=== PATIENT | female | born 1995 ===

== ENCOUNTER 2018-09-23 12:04 | Emergency (ER) | payer OTHER ==
[2018-09-23 12:28] VITALS: BP 98/67
--- NOTE | 2018-09-23 12:43 | UC ---
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 felt immediate pain and has pain w/ movement. of note she reports having chronic back pain and she sees her pcp for this. PT appts are pending. - History of Current Complaint Chief Complaint: UCBackPain Stated Complaint: BACK INJURY Time Seen by Provider: 09/23/18 12:11 Hx Obtained From: Patient Hx Last Menstrual Period: depo Onset/Duration: Sudden Onset Pain Intensity: 10 Pain Scale Used: 0-10 Numeric Character: Spasmodic Aggravating Factor(s): Movement, Lifting, Bending, Walking Alleviating Factor(s): Nothing - Allergies/Home Medications Allergies/Adverse Reactions: Allergies Allergy/AdvReac Type Severity Reaction Status Date / Time No Known Allergies Allergy Verified 09/23/18 12:28 PMH/Surg Hx/FS Hx/Imm Hx - Additional Past Medical History Additional PMH: chronic back pain Previously Healthy: Yes - Surgical History Surgical History: None Surgery Procedure, Year, and Place: denies - Family History Known Family History: Positive: Non-Contributory - Social History Alcohol Use: None Substance Use Type: None Smoking Status (MU): Never Smoked Tobacco Review of Systems All Other Systems Reviewed And Are Negative: Yes Constitutional: Negative: Fever Skin: Negative: Bruising Respiratory: Negative: Shortness Of Breath Genitourinary: Negative: Other - denies urinary incontinence Musculoskeletal: Positive: Other: - +back pain. Negative: Edema, Myalgia Neurological: Negative: Weakness, Paresthesia, Numbness, Other - denies saddle paresthesia Physical Exam Triage Information Reviewed: Yes Appearance: Well-Appearing Vital Signs: Initial Vital Signs Temp 98.8 F 09/23/18 12:25 Pulse 82 09/23/18 12:25 Resp 16 09/23/18 12:25 BP 98/67 09/23/18 12:25 Pulse Ox 100 09/23/18 12:25 Vital Signs Reviewed: Yes Respiratory Exam: Normal Cardiovascular Exam: Normal Musculoskeletal: Positive: Strength Intact - at lower back, LE w/ resistance, ROM Intact - at lower back, No Edema Neurological: Positive: Alert, Muscle Tone Normal, Other: - ambulates normally Skin: Negative: Other - no bruising noted. Back Pain Course/Dx - Course Course Of Treatment: Work related injury after interaction with a resident resulting in a lower back strain. No neuro deficits but on exam there was pain w/ movement and resistance. Able to ambulate. muscle relaxer and nsaids for pain. for her chronic back pain plan is to have her follow through w/ pcp's plan. vitals good. - Differential Dx/Diagnosis Differential Diagnosis/HQI/PQRI: Herniated Disc, Strain Provider Diagnosis: Low back strain Discharge - Sign-Out/Discharge Documenting (check all that apply): Patient Departure All imaging exams completed and their final reports reviewed: No Studies - Discharge Plan Condition: Good Disposition: HOME Prescriptions: Cyclobenzaprine (NF) [Cyclobenzaprine 5 MG (NF)] 5 mg PO TID PRN 5 Days #15 tab PRN Reason: Spasms - Back Patient Education Materials: Low Back Strain (ED) Forms: *Work Release Additional Instructions: for your chronic back issues please follow up with your primary care at [facility]. - Billing Disposition and Condition Condition: GOOD Disposition: Home
== END 2018-09-23 13:05 | disposition home or self-care (01) ==
LOC: UCEAST 12:04
DX: G89.29 Other chronic pain (principal); S39.012A Strain of muscle, fascia and tendon of lower back, initial encounter; X50.0XXA Overexertion from strenuous movement or load, initial encounter; Y93.89 Activity, other specified; Y92.89 Other specified places as the place of occurrence of the external cause; Y99.0 Civilian activity done for income or pay
CPT/HCPCS: 99202; G0463